=== PATIENT | male | born 1950 | race Caucasian/White ===

== ENCOUNTER 2016-10-07 08:33 | Emergency (ER) | payer MEDICARE ==
[2016-10-07] MEDS ORDERED: SODIUM CHLORIDE 0.9% 1,000 ML IV STA ×3 (09:10→11:12)
[2016-10-07] MEDS ORDERED: ONDANSETRON 4 MG/2 ML VIAL IVP STA (09:10)
[2016-10-07] MEDS ORDERED: HYDROmorphone 1 MG/ML 1 ML SYRINGE IVP STA (09:10)
[2016-10-07 09:35] LABS: ALT 23 U/L (21-72); AST 30 U/L (17-59); Alkaline Phosphatase 58 U/L (38-126); Amylase 58 U/L (30-110); Anion Gap 12 mmol/L; Blood Urea Nitrogen 18 mg/dL (9-20); Calcium 9.6 mg/dL (8.4-10.2); Carbon Dioxide 24 mmol/L (22-30); Chloride 107 mmol/L (98-107); Glucose 145 mg/dL (74-99); Non-African American GFR(MDRD) >60 (>60 ml/min/1.73 sqM); Potassium 4.2 mmol/L (3.5-5.1); Sodium 143 mmol/L (137-145); Total Bilirubin 0.7 mg/dL (0.2-1.3); Total Protein 7.2 g/dL (6.3-8.2)
--- NOTE | 2016-10-07 09:45 | ED ---
General Adult HPI - General Chief complaint: Abdominal Pain Stated complaint: Abd Pain Time Seen by Provider: 10/07/16 09:05 Source: patient, EMS, RN notes reviewed Mode of arrival: EMS - History of Present Illness Initial comments: Patient 66-year-old male who presents emergency room today by EMS, with chief complaint of left lower quadrant pain that started approximately 7:30 AM. Patient does admit that it is a dull and achy-type constant pain. States never had similar symptoms in the past. Denies any constipation or diarrhea. Patient denies any recent fever, chills, shortness of breath, chest pain, back pain, numbness or tingling, dysuria or hematuria, constipation or diarrhea, headaches or visual changes, or any other complaints. - Related Data Home Medications Medication Instructions Recorded Confirmed Ergocalciferol [Vitamin D2] 50,000 unit PO Q30D 10/07/16 10/07/16 Previous Rx's Medication Instructions Recorded Ciprofloxacin HCl [Cipro] 500 mg PO Q12HR #14 day 10/07/16 Hydrocodone/Acetaminophen [[place] 1 each PO Q6HR PRN #20 tab 10/07/16 5-325] Ibuprofen [Motrin] 600 mg PO Q6HR PRN #40 day 10/07/16 Ondansetron Odt [Zofran ODT] 4 mg PO Q8HR PRN #20 tab 10/07/16 Tamsulosin [Flomax] 0.4 mg PO DAILY #10 cap 10/07/16 Allergies Allergy/AdvReac Type Severity Reaction Status Date / Time No Known Allergies Allergy Verified 10/07/16 08:51 Review of Systems ROS Statement: Those systems with pertinent positive or pertinent negative responses have been documented in the HPI. ROS Other: All systems not noted in ROS Statement are negative. Past Medical History Additional Past Medical History / Comment(s): Lung infection 3 years ago unknown type, History of Any Multi-Drug Resistant Organisms: None Reported Past Surgical History: No Surgical Hx Reported Past Psychological History: No Psychological Hx Reported Smoking Status: Never smoker Past Alcohol Use History: None Reported Past Drug Use History: None Reported General Exam - General Exam Comments Initial Comments: General: The patient is awake and alert, in no distress, and does not appear acutely ill. Eye: Pupils are equal, round and reactive to light, extra-ocular movements are intact. No nystagmus. There is normal conjunctiva bilaterally. No signs of icterus. Ears, nose, mouth and throat: There are moist mucous membranes and no oral lesions. Neck: The neck is supple, there is no tenderness or JVD. Cardiovascular: There is a regular rate and rhythm. No murmur, rub or gallop is appreciated. Respiratory: Lungs are clear to auscultation, respirations are non-labored, breath sounds are equal. No wheezes, stridor, rales, or rhonchi. Gastrointestinal: Normal appearance of the abdomen. No pulsatile mass. Normal bowel sounds. Abdomen soft on palpation. Mild tenderness left lower quadrant. No rebound tenderness. No guarding. No CVA tenderness. Musculoskeletal: Normal ROM, no tenderness. Strength 5/5. Sensation intact. Pulses equal bilaterally 2+. Neurological: A&O x 3. CN II-XII intact, There are no obvious motor or sensory deficits. Coordination appears grossly intact. Speech is normal. Skin: Skin is warm and dry and no rashes or lesions are noted. Psychiatric: Cooperative, appropriate mood & affect, normal judgment. Course Vital Signs 10/07/16 10/07/16 10/07/16 08:36 09:15 09:37 Temperature 97.4 F L 98.7 F Pulse Rate 64 66 60 Respiratory 35 H 16 16 Rate Blood Pressure 168/84 154/80 165/90 O2 Sat by Pulse 95 99 100 Oximetry 10/07/16 10/07/16 10/07/16 10:00 11:34 12:23 Temperature 98.7 F 97.4 F L Pulse Rate 50 L 52 L 60 Respiratory 16 16 16 Rate Blood Pressure 154/77 133/74 131/76 O2 Sat by Pulse 99 98 97 Oximetry Medical Decision Making - Medical Decision Making CT the abdomen and pelvis reviewed does show [id number] perinephritic fluid surrounding kidney and proximal left ureter, suspected etiology is related to obstructing 3 mm proximal to mid left ureteral calculus. Underlying infection cannot be excluded. Patient has no elevated white count. Does have 12 white cells in his urine with greater than 182 RBCs. Results were discussed with the patient. He is resting comfortably at this time. Will be given pain medicine, nausea medication to go home with. Will be covered with antibiotic. Advised follow-up family doctor or urologist over the next 2 days. Advised return if there is any increase or worsening of symptoms or for any fever. Patient states understanding and is in agreement. - Lab Data Result diagrams: 10/07/16 08:55 10/07/16 08:55 Lab Results 10/07/16 10/07/16 10/07/16 Range/Units 08:55 08:55 08:55 WBC 5.7 (3.8-10.6) k/uL RBC 4.42 (4.30-5.90) m/uL Hgb 14.2 (13.0-17.5) gm/dL Hct 40.9 (39.0-53.0) % MCV 92.5 (80.0-100.0) fL MCH 32.2 (25.0-35.0) pg MCHC 34.9 (31.0-37.0) g/dL RDW 12.4 (11.5-15.5) % Plt Count 178 (150-450) k/uL Neutrophils % (Manual) 54.0 % Band Neutrophils % 1.0 % Lymphocytes % (Manual) 32.5 % Monocytes % (Manual) 12.5 % Neutrophils # (Manual) 3.1 (1.3-7.7) k/uL Lymphocytes # (Manual) 1.9 (1.0-4.8) k/uL Monocytes # (Manual) 0.7 (0-1.0) k/uL Nucleated RBCs 0 (0-0) /100 WBC Manual Slide Review Performed RBC Morphology Normal Sodium 143 (137-145) mmol/L Potassium 4.2 (3.5-5.1) mmol/L Chloride 107 (98-107) mmol/L Carbon Dioxide 24 (22-30) mmol/L Anion Gap 12 mmol/L BUN 18 (9-20) mg/dL Creatinine 0.96 (0.66-1.25) mg/dL Est GFR (MDRD) Af Amer >60 (>60 ml/min/1.73 sqM) Est GFR (MDRD) Non-Af >60 (>60 ml/min/1.73 sqM) Glucose 145 H (74-99) mg/dL Plasma Lactic Acid August 4.1 H* (0.7-2.0) mmol/L Calcium 9.6 (8.4-10.2) mg/dL Total Bilirubin 0.7 (0.2-1.3) mg/dL AST 30 (17-59) U/L ALT 23 (21-72) U/L Alkaline Phosphatase 58 (38-126) U/L Total Protein 7.2 (6.3-8.2) g/dL Albumin 4.4 (3.5-5.0) g/dL Amylase 58 (30-110) U/L Lipase 170 (23-300) U/L Urine Color Urine Appearance (Clear) Urine pH (5.0-8.0) Ur Specific [place] (1.001-1.035) Urine Protein (Negative) Urine Glucose (UA) (Negative) Urine Blood (Negative) Urine Nitrite (Negative) Urine Bilirubin (Negative) Urine Urobilinogen (<2.0) mg/dL Ur Leukocyte Esterase (Negative) Urine RBC (0-5) /hpf Urine WBC (0-5) /hpf Urine Bacteria (None) /hpf Urine Mucus (None) /hpf 10/07/16 10/07/16 Range/Units 12:37 12:40 WBC (3.8-10.6) k/uL RBC (4.30-5.90) m/uL Hgb (13.0-17.5) gm/dL Hct (39.0-53.0) % MCV (80.0-100.0) fL MCH (25.0-35.0) pg MCHC (31.0-37.0) g/dL RDW (11.5-15.5) % Plt Count (150-450) k/uL Neutrophils % (Manual) % Band Neutrophils % % Lymphocytes % (Manual) % Monocytes % (Manual) % Neutrophils # (Manual) (1.3-7.7) k/uL Lymphocytes # (Manual) (1.0-4.8) k/uL Monocytes # (Manual) (0-1.0) k/uL Nucleated RBCs (0-0) /100 WBC Manual Slide Review RBC Morphology Sodium (137-145) mmol/L Potassium (3.5-5.1) mmol/L Chloride (98-107) mmol/L Carbon Dioxide (22-30) mmol/L Anion Gap mmol/L BUN (9-20) mg/dL Creatinine (0.66-1.25) mg/dL Est GFR (MDRD) Af Amer (>60 ml/min/1.73 sqM) Est GFR (MDRD) Non-Af (>60 ml/min/1.73 sqM) Glucose (74-99) mg/dL Plasma Lactic Acid [place] 2.0 (0.7-2.0) mmol/L Calcium (8.4-10.2) mg/dL Total Bilirubin (0.2-1.3) mg/dL AST (17-59) U/L ALT (21-72) U/L Alkaline Phosphatase (38-126) U/L Total Protein (6.3-8.2) g/dL Albumin (3.5-5.0) g/dL Amylase (30-110) U/L Lipase (23-300) U/L Urine Color Light Red Urine Appearance Cloudy (Clear) Urine pH 6.0 (5.0-8.0) Ur Specific [place] 1.020 (1.001-1.035) Urine Protein 1+ H (Negative) Urine Glucose (UA) Trace H (Negative) Urine Blood Large H (Negative) Urine Nitrite Negative (Negative) Urine Bilirubin Negative (Negative) Urine Urobilinogen <2.0 (<2.0) mg/dL Ur Leukocyte Esterase Trace H (Negative) Urine RBC >182 H (0-5) /hpf Urine WBC 12 H (0-5) /hpf Urine Bacteria Rare H (None) /hpf Urine Mucus Rare H (None) /hpf Disposition Clinical Impression: Kidney stone Disposition: HOME SELF-CARE Condition: Good Instructions: Kidney Stones (ED) Additional Instructions: Please use medication as discussed. Please follow-up with urologist/family doctor in the next 2 days of symptoms have not improved. Please return to emergency room if the symptoms increase or worsen or for any other concerns. Prescriptions: Ciprofloxacin HCl [Cipro] 500 mg PO Q12HR #14 day Hydrocodone/Acetaminophen [[place] 5-325] 1 each PO Q6HR PRN #20 tab PRN Reason: Pain Ibuprofen [Motrin] 600 mg PO Q6HR PRN #40 day PRN Reason: Pain Ondansetron Odt [Zofran ODT] 4 mg PO Q8HR PRN #20 tab PRN Reason: Nausea Tamsulosin [Flomax] 0.4 mg PO DAILY #10 cap Referrals: Yordy Zapata MD [Primary Care Provider] - 1-2 days Wing Potter MD [STAFF PHYSICIAN] - 1-2 days Time of Disposition: 13:31
[2016-10-07 09:46] LABS: Aty Lym Flag Slight; CH 32.1; CHCM 34.9; HCT 40.9 % (39.0-53.0); HGB 14.2 gm/dL (13.0-17.5); Large Platelets Flag Slight; MCH 32.2 pg (25.0-35.0); MCHC 34.9 g/dL (31.0-37.0); MCV 92.5 fL (80.0-100.0); Mean Platelet Volume 10.9; RBC 4.42 m/uL (4.30-5.90); RDW 12.4 % (11.5-15.5); WBC 5.7 k/uL (3.8-10.6); WBC (Perox) 5.78
[2016-10-07 10:14] LABS: Add Differential Manual Differential
[2016-10-07 10:28] LABS: Nucleated Red Blood Cells 0 /100 WBC (0-0); Total Cells Counted 200
[2016-10-07 10:29] LABS: Manual Review Performed; RBC Morphology Normal
--- NOTE | 2016-10-07 10:42 | XR ---
Abdomen HISTORY: Left lower quadrant pain and nausea Frontal view of the abdomen on 2 images No comparisons Streak-like area of increased attenuation present in the retrocardiac region compatible with atelecta sis. There is no bowel obstruction or pneumoperitoneum evident. There is a mild spinal curvature. Bon e mineralization is maintained. Probable vascular calcifications within the pelvis. IMPRESSION: No acute abnormalities evident within the abdomen. Left lower lobe atelectasis.
--- NOTE | 2016-10-07 11:09 | CT ---
EXAMINATION TYPE: CT abdomen pelvis wo con DATE OF EXAM: 10/07/2016 HISTORY: Left lower quadrant pain CT DLP: 1022 mGycm. Automated Exposure Control for Dose Reduction was Utilized. TECHNIQUE: CT scan of the abdomen and pelvis is performed without oral or IV contrast. COMPARISON: NONE FINDINGS: Within the limitations of a non-contrast study, the following observations are made. LUNG BASES: Some linear scarring and/or atelectasis in both lung bases is present posteriorly. LIVER/GB: No significant abnormality is appreciated. PANCREAS: No significant abnormality is seen. SPLEEN: No significant abnormality is seen. ADRENALS: No significant abnormality is seen. KIDNEYS: No renal stones are evident bilaterally. There is moderate ill-defined fluid surrounding the left kidney and proximal ureter making visualization of ureter difficult. There is 3 mm round densit y presumed ureter calculus proximal to mid ureter level on axial image 49 and coronal image 40 at lev el of the superior L5 vertebra or endplate. This is not causing significant left-sided hydronephrosis . No right-sided hydronephrosis is seen. No intraluminal calculus in the bladder is present. Few scat tered pelvic phleboliths are noted. BOWEL: Normal-appearing appendix is seen from cecum. There is no suspicious small or large bowel dila tation. GENITAL ORGANS: No gross abnormality seen. LYMPH NODES: No greater than 1cm abdominal or pelvic lymph nodes are appreciated. OSSEOUS STRUCTURES: There is moderate disc space narrowing with sclerosis L5-S1 level. Facet arthropa thy lower lumbar levels is seen. OTHER: No significant additional abnormality is seen. IMPRESSION: Mild to moderate perinephric fluid surrounding kidney and proximal left ureter, suspect e tiology is related to obstructing 3 mm proximal to mid left ureter calculus. Underlying infection evangelista uld be excluded clinically. No significant left-sided hydronephrosis is noted. No additional renal ca lculi are identified bilaterally.
[2016-10-07] MEDS ORDERED: TAMSULOSIN 0.4 MG CAP.ER.24H PO STA (11:12)
[2016-10-07] MEDS ORDERED: KETOROLAC 30 MG/ML 1 ML VIAL IVP STA (11:12)
[2016-10-07 13:19] LABS: Appearance,Urine Cloudy (Clear); Bacteria,Urine Rare /hpf; Bilirubin,Urine Negative (Negative); Glucose,Urine (UA) Trace (Negative); Ketones,Urine 2+ (Negative); Leukocyte Esterase,Urine Trace (Negative); Mucus,Urine Rare /hpf; Nitrite,Urine Negative (Negative); Particle Count 6348; Protein,Urine 1+ (Negative); RBC,Urine >182 /hpf (0-5); UA Billing (MACRO vs. MICRO) MICRO; Urobilinogen,Urine <2.0 mg/dL (<2.0); WBC,Urine 12 /hpf (0-5)
[2016-10-07 13:54] VITALS: BP 139/70; PULSE 57; RESP 18; TEMP 97.8
== END 2016-10-07 14:00 | disposition home or self-care (01) ==
LOC: EC 08:33
DX: N20.0 Calculus of kidney (principal); Z79.899 Other long term (current) drug therapy
CPT/HCPCS: 99285; 96374; 96375 ×2; 96361 ×5; 51798; 36415; 80053; 82150; 83605; 83690; 85025; 81001; 74000; 74176; J2405; J1885; J1170

== ENCOUNTER 2016-10-13 15:38 | Emergency (ER) | payer MEDICARE ==
[2016-10-13] MEDS ORDERED: SODIUM CHLORIDE 0.9% 1,000 ML IV STA (17:24)
[2016-10-13] MEDS ORDERED: KETOROLAC 30 MG/ML 1 ML VIAL IVP STA (17:27)
[2016-10-13] MEDS ORDERED: HYDROmorphone 1 MG/ML 1 ML SYRINGE IVP STA (17:27)
[2016-10-13] MEDS ORDERED: ONDANSETRON 4 MG/2 ML VIAL IVP STA (17:28)
--- NOTE | 2016-10-13 17:30 | ED ---
Abdominal Pain HPI - General Chief Complaint: Abdominal Pain Stated Complaint: back pain/kidney stones Time Seen by Provider: 10/13/16 17:23 Source: patient, RN notes reviewed Mode of arrival: wheelchair Limitations: no limitations - History of Present Illness Initial Comments: 66-year-old male presents emergency Department with chief complaint of left flank pain. Patient states she was seen here 6 days ago for kidney stone. Patient states he follow-up with Dr. Zapata and told to continue medications. Patient states that helping at this time. Patient states it seems to wax and wane and, every hour. He states that radiates to his lower abdomen. States he had minimal nausea no vomiting no diarrhea or constipation. States that he fell today he had a fever and chills earlier but he is afebrile now. Patient denies any dysuria. - Related Data Home Medications Medication Instructions Recorded Confirmed Ergocalciferol [Vitamin D2] 50,000 unit PO Q30D 10/07/16 10/13/16 Hydrocodone/Acetaminophen [[place] 1 tab PO Q6HR PRN 10/13/16 10/13/16 5-325] Previous Rx's Medication Instructions Recorded Ciprofloxacin HCl [Cipro] 500 mg PO Q12HR #14 day 10/07/16 Ibuprofen [Motrin] 600 mg PO Q6HR PRN #40 day 10/07/16 Ondansetron Odt [Zofran ODT] 4 mg PO Q8HR PRN #20 tab 10/07/16 Tamsulosin [Flomax] 0.4 mg PO DAILY #10 cap 10/07/16 Hydrocodone/Acetaminophen [[place] 1 tab PO Q6HR PRN #20 tab 10/13/16 5-325] Tamsulosin [Flomax] 0.4 mg PO DAILY #7 cap 10/13/16 Allergies Allergy/AdvReac Type Severity Reaction Status Date / Time No Known Allergies Allergy Verified 10/13/16 18:15 Review of Systems ROS Statement: Those systems with pertinent positive or pertinent negative responses have been documented in the HPI. ROS Other: All systems not noted in ROS Statement are negative. Past Medical History Additional Past Medical History / Comment(s): Lung infection 3 years ago unknown type, kidney stones History of Any Multi-Drug Resistant Organisms: None Reported Past Surgical History: No Surgical Hx Reported Past Psychological History: No Psychological Hx Reported Smoking Status: Never smoker Past Alcohol Use History: None Reported Past Drug Use History: None Reported General Exam Limitations: no limitations General appearance: alert, in no apparent distress Respiratory exam: Present: normal lung sounds bilaterally. Absent: respiratory distress, wheezes, rales, rhonchi, stridor Cardiovascular Exam: Present: regular rate, normal rhythm, normal heart sounds. Absent: systolic murmur, diastolic murmur, rubs, gallop, clicks GI/Abdominal exam: Present: soft, normal bowel sounds. Absent: distended, tenderness, guarding, rebound, rigid Back exam: Absent: CVA tenderness (R), CVA tenderness (L) Skin exam: Present: warm, dry, intact, normal color. Absent: rash Course Vital Signs 10/13/16 15:50 Temperature 98.2 F Pulse Rate 84 Respiratory 20 Rate Blood Pressure 137/71 O2 Sat by Pulse 98 Oximetry - Reevaluation(s) Reevaluation #1: 10/13/16 18:47 Patient was updated in reevaluated patient is resting comfortably in the bed at this time. Medical Decision Making - Medical Decision Making 66-year-old male present emergency department for left flank pain. Patient has a ureteral calculi. Patient had this diagnosed on CT 6 days ago. Patient's blood work does reveal mild elevation of his kidney function. Patient increase fluids. Patient will follow-up with urologist. Patient's urinalysis does show some blood. Patient x-ray does show nondisplaced rib fracture he states he fell last March while jogging. He did have some pain in that area that time - Lab Data Result diagrams: 10/13/16 17:50 10/13/16 17:50 Lab Results 10/13/16 10/13/16 10/13/16 Range/Units 17:50 17:50 17:58 WBC 6.4 (3.8-10.6) k/uL RBC 4.28 L (4.30-5.90) m/uL Hgb 13.4 (13.0-17.5) gm/dL Hct 39.8 (39.0-53.0) % MCV 92.9 (80.0-100.0) fL MCH 31.3 (25.0-35.0) pg MCHC 33.7 (31.0-37.0) g/dL RDW 12.7 (11.5-15.5) % Plt Count 156 (150-450) k/uL Neutrophils % 81 % Lymphocytes % 8 % Monocytes % 8 % Eosinophils % 0 % Basophils % 0 % Neutrophils # 5.1 (1.3-7.7) k/uL Lymphocytes # 0.5 L (1.0-4.8) k/uL Monocytes # 0.5 (0-1.0) k/uL Eosinophils # 0.0 (0-0.7) k/uL Basophils # 0.0 (0-0.2) k/uL Sodium 141 (137-145) mmol/L Potassium 4.1 (3.5-5.1) mmol/L Chloride 103 (98-107) mmol/L Carbon Dioxide 28 (22-30) mmol/L Anion Gap 10 mmol/L BUN 16 (9-20) mg/dL Creatinine 1.49 H (0.66-1.25) mg/dL Est GFR (MDRD) Af Amer 57 (>60 ml/min/1.73 sqM) Est GFR (MDRD) Non-Af 47 (>60 ml/min/1.73 sqM) Glucose 102 H (74-99) mg/dL Calcium 9.5 (8.4-10.2) mg/dL Total Bilirubin 1.2 (0.2-1.3) mg/dL AST 29 (17-59) U/L ALT 30 (21-72) U/L Alkaline Phosphatase 73 (38-126) U/L Total Protein 6.9 (6.3-8.2) g/dL Albumin 4.0 (3.5-5.0) g/dL Amylase <30 L (30-110) U/L Lipase 48 (23-300) U/L Urine Color Yellow Urine Appearance Clear (Clear) Urine pH 6.0 (5.0-8.0) Ur Specific [place] 1.011 (1.001-1.035) Urine Protein Negative (Negative) Urine Glucose (UA) Negative (Negative) Urine Ketones 2+ H (Negative) Urine Blood Small H (Negative) Urine Nitrite Negative (Negative) Urine Bilirubin Negative (Negative) Urine Urobilinogen <2.0 (<2.0) mg/dL Ur Leukocyte Esterase Negative (Negative) Urine RBC 1 (0-5) /hpf Urine WBC 2 (0-5) /hpf Urine Mucus Rare H (None) /hpf Disposition Clinical Impression: Ureteral calculi, Rib fracture Disposition: HOME SELF-CARE Condition: Stable Instructions: Kidney Stones (ED) Additional Instructions: Please return to the Emergency Department if symptoms worsen or any other concerns. Prescriptions: Hydrocodone/Acetaminophen [[place] 5-325] 1 tab PO Q6HR PRN #20 tab PRN Reason: Pain Tamsulosin [Flomax] 0.4 mg PO DAILY #7 cap Referrals: Yordy Zapata MD [Primary Care Provider] - 1-2 days Wing Potter MD [STAFF PHYSICIAN] - 1-2 days Time of Disposition: 18:49
[2016-10-13 18:00] LABS: Basophils % (A) 0 %; CH 31.9; CHCM 34.4; Eosinophils % (A) 0 %; HCT 39.8 % (39.0-53.0); HDW 2.59; HGB 13.4 gm/dL (13.0-17.5); Luc # (Auto) 0.17; Luc % (Auto) 3; Lymphocytes # (A) 0.5 k/uL (1.0-4.8); Lymphocytes % (A) 8 %; MCH 31.3 pg (25.0-35.0); MCHC 33.7 g/dL (31.0-37.0); MCV 92.9 fL (80.0-100.0); Mean Platelet Volume 9.6; Monocytes # (A) 0.5 k/uL (0-1.0); Monocytes % (A) 8 %; Neutrophils # (A) 5.1 k/uL (1.3-7.7); Neutrophils % (A) 81 %; RBC 4.28 m/uL (4.30-5.90); RDW 12.7 % (11.5-15.5); WBC 6.4 k/uL (3.8-10.6); WBC (Perox) 6.57
[2016-10-13 18:12] LABS: ALT 30 U/L (21-72); AST 29 U/L (17-59); Alkaline Phosphatase 73 U/L (38-126); Amylase <30 U/L (30-110); Anion Gap 10 mmol/L; Blood Urea Nitrogen 16 mg/dL (9-20); Calcium 9.5 mg/dL (8.4-10.2); Carbon Dioxide 28 mmol/L (22-30); Chloride 103 mmol/L (98-107); Glucose 102 mg/dL (74-99); Non-African American GFR(MDRD) 47 (>60 ml/min/1.73 sqM); Potassium 4.1 mmol/L (3.5-5.1); Sodium 141 mmol/L (137-145); Total Bilirubin 1.2 mg/dL (0.2-1.3); Total Protein 6.9 g/dL (6.3-8.2)
--- NOTE | 2016-10-13 18:24 | XR ---
EXAMINATION TYPE: XR KUB DATE OF EXAM: 10/13/2016 COMPARISON: October 07, 2016 HISTORY: Left-sided pain TECHNIQUE: 2 upright views were obtained FINDINGS: There is no pneumoperitoneum or pneumatosis, an no bowel obstruction. No left-sided calcifi cations are evident. The soft tissues are unremarkable. Visualized lung bases and pleural spaces are negative for acute findings. However, there is a nondisplaced left-sided 10th rib fracture noted, and this may be responsible for the patient's symptoms if clinically corroborated. IMPRESSION: 1. NO ACUTE ABDOMINAL PROCESS. 2. HOWEVER, LEFT NONDISPLACED 10TH RIB FRACTURE DISCUSSED.
[2016-10-13 18:31] LABS: Appearance,Urine Clear (Clear); Bilirubin,Urine Negative (Negative); Glucose,Urine (UA) Negative (Negative); Ketones,Urine 2+ (Negative); Leukocyte Esterase,Urine Negative (Negative); Mucus,Urine Rare /hpf; Nitrite,Urine Negative (Negative); Particle Count 783; Protein,Urine Negative (Negative); RBC,Urine 1 /hpf (0-5); Specific Gravity,Urine 1.011 (1.001-1.035); UA Billing (MACRO vs. MICRO) MICRO; Urobilinogen,Urine <2.0 mg/dL (<2.0); WBC,Urine 2 /hpf (0-5)
[2016-10-13 18:59] VITALS: BP 117/64; PULSE 73; RESP 16; TEMP 98.3
== END 2016-10-13 18:58 | disposition home or self-care (01) ==
LOC: EC 15:38
DX: S22.32XA Fracture of one rib, left side, initial encounter for closed fracture (principal); N20.1 Calculus of ureter; Z87.442 Personal history of urinary calculi; Z79.899 Other long term (current) drug therapy; W19.XXXA Unspecified fall, initial encounter; Y93.89 Activity, other specified
CPT/HCPCS: 36415; 80053; 82150; 83690; 85025; 81001; 74000; 99284; 96374; 96375 ×2; 96361; J2405; J1885; J1170